=== PATIENT | male | born 1980 | race African-American/Black ===

== ENCOUNTER 2018-01-09 03:55 | Emergency (ER) | payer OTHER ==
[~2018-01-09] VITALS: Ht 188 cm; Wt 90.7 kg
[2018-01-09 03:57] VITALS: BP_SYST 152
[2018-01-09 04:14] VITALS: BP_SYST 152
== END 2018-01-09 04:14 ==
LOC: SED 03:55
DX: R03.0 Elevated blood-pressure reading, without diagnosis of hypertension (principal); V89.2XXA Person injured in unspecified motor-vehicle accident, traffic, initial encounter; Y93.89 Activity, other specified; Y92.410 Unspecified street and highway as the place of occurrence of the external cause; Y99.8 Other external cause status
CPT/HCPCS: 99283